=== PATIENT | male | born 1960 | race African-American/Black ===

== ENCOUNTER 2018-12-25 13:45 | Emergency (ER) | payer SELFPAY ==
[~2018-12-25] VITALS: Ht 188 cm; Wt 131.5 kg
[2018-12-25] MEDS ORDERED: ASPirin 81 mg TAB PO ONE (14:45)
[2018-12-25] MEDS ORDERED: cloNIDine HCL 0.1 MG TAB PO ONE (14:45)
[2018-12-25 14:47] LABS: Basophils # (auto) 0 uL; Basophils % (auto) 0.8 % (0.0-2.0); Eosinophils # (auto) 0.2 uL; Eosinophils % (auto) 3.3 % (0.0-7.0); Hematocrit 42.1 % (41.0-53.0); Hemoglobin 14.1 g/dL (13.5-17.5); Lymphocytes # (auto) 2.3 uL; Lymphocytes % (auto) 43.5 % (10.0-50.0); Mean Corpuscular Hemoglobin 27.9 pg (28.0-32.0); Mean Corpuscular Hgb Conc. 33.5 g/dL (32.0-36.0); Mean Corpuscular Volume 83.4 fL (80.0-100.0); Monocytes # (auto) 0.3 uL; Monocytes % (auto) 6.5 % (0.0-12.0); Neutrophils # (auto) 2.4 uL; Neutrophils % (auto) 45.9 % (37.0-80.0); Nucleated Red Blood Cells % 0.2 %; Platelet Count (auto) 159 10^3/uL (140-450); Red Blood Cells 5.05 10^6/uL (4.5-5.90); Red Cell Distribution Width 15.3 % (11.8-14.3); White Blood Cell 5.2 10^3/uL (4.4-10.8)
[2018-12-25 15:05] LABS: Albumin 3.8 g/dL (3.4-5.0); Anion Gap 6 (5-15); Blood Urea Nitrogen 14 mg/dL (7-18); Calcium 9.1 mg/dL (8.5-10.1); Carbon Dioxide 25 mmol/L (21-32); Chloride 109 mmol/L (98-107); Glucose 113 mg/dL (74-106); Potassium 3.8 mmol/L (3.5-5.1); Sodium 140 mmol/L (136-145)
[2018-12-25 15:10] LABS: INR 1.01 (0.9-1.15); Partial Thromboplastin Time 27.9 sec (23.64-32.05)
[2018-12-25 15:11] LABS: Alanine Aminotransferase 33 U/L (16-61); Alkaline Phosphatase 80 U/L (45-117); Aspartate Aminotransferase 20 U/L (15-37); BUN/Creatinine Ratio 7.8; Bilirubin, Total 0.5 mg/dL (0.2-1.0); GFR African American 50 mL/min; GFR Non-African American 41 mL/min; Total Protein 8.4 g/dL (6.4-8.2)
[2018-12-25 15:27] LABS: Urine WBC None Seen /hpf (0 - 3)
[2018-12-25 15:48] LABS: Urine Bacteria NONE SEEN /hpf (None Seen); Urine Blood Negative /uL (Negative); Urine Specific Gravity 1.015 (1.001-1.035)
[2018-12-25 20:57] VITALS: BP 166/95
== END 2018-12-25 21:00 | disposition home or self-care (01) ==
LOC: ER 13:53
DX: I10 Essential (primary) hypertension (principal); Z88.6 Allergy status to analgesic agent
CPT/HCPCS: 36415; 71046; 80053; 81001; 84484; 85025; 85610; 85730; 93005; 94761

== ENCOUNTER 2019-01-27 18:08 | Emergency (ER) | payer BC ==
[~2019-01-27] VITALS: Ht 188 cm; Wt 131.5 kg
[2019-01-27 18:56] LABS: Basophils # (auto) 0.1 uL; Basophils % (auto) 1.4 % (0.0-2.0); Eosinophils # (auto) 0.2 uL; Eosinophils % (auto) 4.7 % (0.0-7.0); Hematocrit 39.2 % (41.0-53.0); Hemoglobin 12.7 g/dL (13.5-17.5); Lymphocytes # (auto) 2.1 uL; Mean Corpuscular Hgb Conc. 32.4 g/dL (32.0-36.0); Mean Corpuscular Volume 83.3 fL (80.0-100.0); Monocytes # (auto) 0.5 uL; Monocytes % (auto) 11.2 % (0.0-12.0); Neutrophils # (auto) 1.7 uL; Neutrophils % (auto) 36.7 % (37.0-80.0); Nucleated Red Blood Cells % 0.3 %; Platelet Count (auto) 195 10^3/uL (140-450); Red Blood Cells 4.71 10^6/uL (4.5-5.90); Red Cell Distribution Width 15.3 % (11.8-14.3); White Blood Cell 4.5 10^3/uL (4.4-10.8)
[2019-01-27 19:08] LABS: Alanine Aminotransferase 34 U/L (16-61); Albumin 3.9 g/dL (3.4-5.0); Anion Gap 8 (5-15); Blood Urea Nitrogen 29 mg/dL (7-18); Calcium 8.9 mg/dL (8.5-10.1); Carbon Dioxide 23 mmol/L (21-32); Chloride 109 mmol/L (98-107); Glucose 105 mg/dL (74-106); Potassium 3.9 mmol/L (3.5-5.1); Sodium 140 mmol/L (136-145)
[2019-01-27 19:13] LABS: Alkaline Phosphatase 85 U/L (45-117); Aspartate Aminotransferase 21 U/L (15-37); BUN/Creatinine Ratio 10.5; Bilirubin, Total 0.3 mg/dL (0.2-1.0); GFR African American 31 mL/min; GFR Non-African American 25 mL/min; Total Protein 8.4 g/dL (6.4-8.2)
[2019-01-28 00:42] VITALS: BP 128/71
== END 2019-01-28 00:36 | disposition home or self-care (01) ==
LOC: ER 18:08
DX: I12.9 Hypertensive chronic kidney disease with stage 1 through stage 4 chronic kidney disease, or unspecified chronic kidney disease (principal); N18.9 Chronic kidney disease, unspecified; F41.9 Anxiety disorder, unspecified
CPT/HCPCS: 36415; 70450; 80053; 82962; 84484; 85025; 93005